=== PATIENT | female | born 1940 | race Caucasian/White ===

== ENCOUNTER 2017-09-02 16:15 | Inpatient (IN) | payer MEDICARE, BC ==
[~2017-09-02] VITALS: Ht 154.9 cm; Wt 81.0 kg
[2017-09-11] VITALS (11 sets, daily range): BP systolic 123–152; BP diastolic 51–72; PULSE 69–85; TEMP 97.4–98.9
[2017-09-11] MEDS ORDERED: CRESTOR 10MG10 MG PO (01:52)
[2017-09-11] MEDS ORDERED: COREG 25MG25 MG/TAB PO (01:52)
[2017-09-11] MEDS ORDERED: CRANBERRY450 MG PO (01:52)
[2017-09-11] MEDS ORDERED: AMARYL4 MG PO (01:53)
[2017-09-11] MEDS ORDERED: MONOPRIL40 MG PO (01:53)
[2017-09-11] MEDS ORDERED: TOFRANIL 25MG T25 MG PO (01:53)
[2017-09-11] MEDS ORDERED: MULTIPLE VITAMI1 CAP PO (01:54)
[2017-09-11] MEDS ORDERED: PRILOSEC10 MG PO (01:54)
[2017-09-11] MEDS ORDERED: OSTEO-BI-FLEX 21 TAB PO (01:55)
[2017-09-11] MEDS ORDERED: TRESIBA FL100 UNIT/1 SQ (01:55)
[2017-09-11] MEDS ORDERED: VERELAN240 MG PO (01:56)
[2017-09-11] MEDS ORDERED: VICTOZA6 MG/ML SQ (01:56)
[2017-09-11] MEDS ORDERED: VITAMIN B100 CO1 TAB PO (02:01)
[2017-09-11] MEDS ORDERED: COUMADIN4 MG PO (02:01)
[2017-09-11 06:09] LABS: MEAN CELL VOLUME 91 fl (80.0-100.0); MEAN CORPUSCULAR HGB CONC 31 g/dl (33.0-37.0); MEAN PLATELET VOLUME 8.5 fl (7.4-10.4); PLATELET COUNT 319 K/mm3 (130-400); RED BLOOD COUNT 4.04 M/mm3 (4.10-5.30); WHITE BLOOD COUNT 7.5 K/mm3 (4.8-10.8)
[2017-09-11 06:13] LABS: HEMATOCRIT 36.9 % (37.0-47.0); HEMOGLOBIN 11.6 g/dl (12.5-16.0); MEAN CORPUSCULAR HEMOGLOBIN 29 pg (27.0-31.0)
[2017-09-11 06:20] LABS: CALCIUM 10.3 mg/dL (8.4-10.2); CREATININE, serum 0.69 mg/dL (0.52-1.25); POTASSIUM 4.3 mmol/L (3.4-5.0)
[2017-09-12 02:23] VITALS: BP 158/69; PULSE 81; TEMP 98.5
[2017-09-12 05:59] VITALS: BP 139/57; PULSE 69; TEMP 98.2
[2017-09-12 07:42] VITALS: BP 117/56; PULSE 77; TEMP 97.7
== END 2017-09-12 12:20 | disposition home or self-care (01) | DRG 483 ==
LOC: JCC 09-11 05:17
PROVIDERS: Nurse Anesthetist, Certified Registered; Orthopaedic Surgery
PROC: 0RRJ00Z Replacement of Right Shoulder Joint with Reverse Ball and Socket Synthetic Substitute, Open Approach (ICD-10-PCS; principal; 2017-09-11 07:30)
DX: S42.241A 4-part fracture of surgical neck of right humerus, initial encounter for closed fracture (principal); W01.0XXA Fall on same level from slipping, tripping and stumbling without subsequent striking against object, initial encounter; E11.9 Type 2 diabetes mellitus without complications; I10 Essential (primary) hypertension; Z95.0 Presence of cardiac pacemaker; Z95.5 Presence of coronary angioplasty implant and graft
CPT/HCPCS: C1713; C1776; J0690; J1170; J1815; J2370; J2405; J2704; J2765; J3010; J7030

== ENCOUNTER → 2017-12-01 | Outpatient (CLI) | payer MEDICARE, BC ==
[~2017-12-01] MED LIST: AMARYL4 MG PO; COREG 25MG25 MG/TAB PO; COUMADIN4 MG PO; CRANBERRY450 MG PO; CRESTOR 10MG10 MG PO; MONOPRIL40 MG PO; MULTIPLE VITAMI1 CAP PO; OSTEO-BI-FLEX 21 TAB PO; PRILOSEC10 MG PO; TOFRANIL 25MG T25 MG PO; TRESIBA FL100 UNIT/1 SQ; VERELAN240 MG PO; VICTOZA6 MG/ML SQ; VITAMIN B100 CO1 TAB PO
== END ==
LOC: COL.RAD 12:42
DX: R22.0 Localized swelling, mass and lump, head (principal)

== ENCOUNTER → 2021-10-29 | Outpatient (CLI) | payer MEDICARE, BC | LOC: COL.RAD 12:25 | DX: S22.069A Unspecified fracture of T7-T8 vertebra, initial encounter for closed fracture (principal); M81.0 Age-related osteoporosis without current pathological fracture ==